=== PATIENT | female | born 1955 | race Hispanic/Latino ===

== ENCOUNTER → 2017-09-25 | Outpatient (CLI) | payer OTHER ==
[~2017-09-25] MED LIST: ESOM40CA54 PO; LEVO75TA10 PO; LUBI24CA2 PO; METO50TA18 PO; WARF2TAB57 PO
== END | disposition home or self-care (01) ==
LOC: RAH 14:58
PROVIDERS: ATTEND Obstetrics & Gynecology
DX: Z12.31 Encounter for screening mammogram for malignant neoplasm of breast (principal)
CPT/HCPCS: 77067

== ENCOUNTER → 2018-09-27 | Outpatient (CLI) | payer OTHER | END | disposition home or self-care (01) | LOC: RAH 15:55 | PROVIDERS: ATTEND Obstetrics & Gynecology | DX: Z12.31 Encounter for screening mammogram for malignant neoplasm of breast (principal) | CPT/HCPCS: 77067 ==

== ENCOUNTER → 2019-09-28 | Outpatient (CLI) | payer OTHER, SELFPAY | END | disposition home or self-care (01) | LOC: RAH 15:39 | PROVIDERS: ATTEND Obstetrics & Gynecology | DX: Z12.31 Encounter for screening mammogram for malignant neoplasm of breast (principal) | CPT/HCPCS: 77067 ==

== ENCOUNTER → 2020-10-17 | Outpatient (CLI) | payer MEDICARE | END | disposition home or self-care (01) | LOC: RAH 15:39 | PROVIDERS: ATTEND Obstetrics & Gynecology | DX: Z12.31 Encounter for screening mammogram for malignant neoplasm of breast (principal) | CPT/HCPCS: 77067 ==

== ENCOUNTER → 2022-11-07 | Outpatient (CLI) | payer MEDICARE | END | disposition home or self-care (01) | LOC: RAH 09:49 | PROVIDERS: ATTEND Obstetrics & Gynecology | DX: Z12.31 Encounter for screening mammogram for malignant neoplasm of breast (principal) | CPT/HCPCS: 77067 ==

== ENCOUNTER 2023-09-26 15:15 | Emergency (ER) | payer MEDICARE ==
[~2023-09-26] VITALS: Ht 152.4 cm; Wt 64.4 kg
[2023-09-26 15:52] VITALS: BP 138/77; PULSE 77; RESP 18; O2SAT 99
[2023-09-26] MEDS ORDERED: ACETAMINOPHEN WITH CODEINE 1 TAB TAB PO ONE (17:00)
[2023-09-26] MEDS ORDERED: ACET-2079 PO (17:10)
== END 2023-09-26 17:33 | disposition home or self-care (01) ==
LOC: EDH 15:15
DX: S82.142A Displaced bicondylar fracture of left tibia, initial encounter for closed fracture (principal); K21.9 Gastro-esophageal reflux disease without esophagitis; I10 Essential (primary) hypertension; Z79.01 Long term (current) use of anticoagulants; Z88.0 Allergy status to penicillin; Z91.040 Latex allergy status; W18.39XA Other fall on same level, initial encounter; Y93.89 Activity, other specified; Y92.89 Other specified places as the place of occurrence of the external cause; Y99.8 Other external cause status
CPT/HCPCS: 29505; 73562

== ENCOUNTER → 2024-02-01 | Outpatient (CLI) | payer MEDICARE ==
[~2024-02-01] MED LIST changes: +ASPI-1012 PO; +AZEL137S11 NS; +CEPH500C2 PO; +DOCU-116 PO; +ENAL-89 PO; +EPI PEN INJ; +ERYT1OIN7 OS; -ESOM40CA54 PO; +HYDR-4060 PO; +IPRA42SP NS; -LUBI24CA2 PO; -METO50TA18 PO; +MONT-39 PO; +PANT40TA54 PO; +PREG50CA64 PO; +ROPI1TAB46 PO; +ROSU5TAB43 PO; -WARF2TAB57 PO
== END | disposition home or self-care (01) ==
LOC: EEVIPCON 10:00 → RAH 10:14
PROVIDERS: ATTEND Obstetrics & Gynecology
DX: Z12.31 Encounter for screening mammogram for malignant neoplasm of breast (principal); R92.333 Mammographic heterogeneous density, bilateral breasts
CPT/HCPCS: 77067

== ENCOUNTER 2025-06-09 07:01 | Day surgery (SDC) | payer MEDICARE ==
[2025-06-07 11:53] LABS: IMMATURE GRANULOCYTE ABSOLUTE 0.02 K/uL (0-1); NUCLEATED RED BLOOD CELLS 0.0 % (0.0-0.19); PLATELET COUNT (AUTO) 323 K/uL (130-400); RED BLOOD CELL COUNT(AUTO) 4.43 MIL/uL (4.00-5.50); RED CELL DISTRIBUTION WIDTH 14.9 % (11.0-15.5); WHITE BLOOD COUNT (AUTO) 6.9 K/uL (4.8-10.8)
[2025-06-07 12:02] VITALS: BP 111/69; PULSE 79; RESP 14; TEMP 97.3
[2025-06-07 12:04] LABS: INR 0.98 (0.85-1.15)
[2025-06-07 12:05] LABS: CREATININE 0.6 mg/dL (0.5-1.0); GLOMERULAR FILTR. RATE CALC 97.0 mL/min (>90); GLUCOSE,RANDOM 87.0 mg/dL (70-105); SODIUM SERUM 135.0 mmol/L (136-145); UREA NITROGEN, BLOOD 5.0 mg/dL (7-18)
--- NOTE | 2025-06-07 12:12 | EKG ---
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
[2025-06-09] VITALS (19 sets, daily range): BP systolic 116–155; BP diastolic 56–90; PULSE 62–88; RESP 13–18; TEMP 97.2–97.6
[~2025-06-09] VITALS: Ht 152.4 cm; Wt 57.8 kg
[~2025-06-09 07:01] MED LIST changes: -ASPI-1012 PO; +ASPI-1443 PO; -CEPH500C2 PO; -DOCU-116 PO; +DUPIXENT INJ; -ENAL-89 PO; +ENAL-91 PO; -ERYT1OIN7 OS; -HYDR-4060 PO; +LINA145C PO; -ROSU5TAB43 PO; +ROSU5TAB51 PO; +SOLI10TA PO; +TIRZ5PEN SQ
[2025-06-09] MEDS ORDERED: CLINDAMYCIN IVPB 900MG/50ML 50 ML IV ONE (07:21)
[2025-06-09] MEDS ORDERED: LACTATED RINGERS 1000ML 1,000 ML IV ONE (07:21)
[2025-06-09] MEDS ORDERED: HYDR-4060 PO (08:32)
[2025-06-09] MEDS ORDERED: MIDAZOLAM HCL 1 MG/ML 2ML VIAL ONE (09:03)
[2025-06-09] MEDS ORDERED: LIDOCAINE PF 100MG/5ML (2%) SYRINGE 5ML ONE (09:03)
[2025-06-09] MEDS ORDERED: SUCCINYLCHOLINE CHLORIDE 20 MG/ML 10 ML VIAL ONE (09:25)
--- NOTE | 2025-06-09 11:25 | OP ---
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 Patient healed the fracture uneventfully and went onto develop posttraumatic left knee osteoarthritis. After discussion of the risks, benefits, and alternatives, the patient elected to proceed with a staged hardware removal to be followed by total knee arthroplasty. DESCRIPTION OF PROCEDURE: Patient was properly identified in the preoperative holding area. Surgical site marking was verified and surgery consent reviewed. The patient was then taken to the operating room and placed in supine position on the OR table. After induction of general anesthesia, preoperative antibiotics were given, all bony prominences were well-padded, and a well padded tourniquet was applied but not inflated at this time. The left lower extremity was then prepped and draped in usual sterile fashion. Surgical timeout was done verifying correct surgery, side, site, and location to be performed. The limb was exsanguinated with an Esmarch and the tourniquet was inflated to 250 mm Hg. We then used a 10 blade to reopen the anterolateral incision of the knee to its full extent. Here we came sharply down to the level of the fascia. Hemostasis was achieved with Bovie electrocautery. We then palpated the plate in incised the fascia overlying the plate with a 10 blade. We then obtained a Soto elevator and elevated the soft tissues off of the plate both proximally and distally until the plate was then covered. Interposed soft tissues debrided from the screw heads. Each of the screws was loosened with the screwdriver on hand and then removed on power. Who we are then able to remove the plate using the Soto elevator to freed up from the remaining soft tissue. Final x-rays were then obtained with AP and lateral view showing removal of the hardware. The wound was then irrigated out with normal saline. We then began repairing the fascia layer and IT band with a 1. Vicryl. 2-0 Vicryl was used in the flores bcutaneous tissue with a running subcuticular 3-0 Monocryl. Dermabond was applied over this. Sterile soft dressing was applied. Tourniquet was deflated. Patient was awakened from anesthesia and taken to the recovery room in stable condition. MEHUL HURTADO MD Jun 09, 2025 11:25
--- NOTE | 2025-06-10 11:11 | HMCIMG ---
TIBIA/FIBULA 2VWS LT REASON: OROIF LEFT TIBIA HARDWARE REMOVAL, SX TECHNIQUE: 3 views were obtained. FINDINGS: Patient underwent removal of orthopedic hardware in the left tibia.. Fluoroscopy time 2 seconds. IMPRESSION: Details of the finding in the procedural notes.
== END 2025-06-09 13:35 | disposition home or self-care (01) ==
LOC: DAH 07:01
PROVIDERS: ATTEND Student in an Organized Health Care Education/Training Program
DX: M17.32 Unilateral post-traumatic osteoarthritis, left knee (principal); I10 Essential (primary) hypertension; E78.5 Hyperlipidemia, unspecified; K21.9 Gastro-esophageal reflux disease without esophagitis; E03.9 Hypothyroidism, unspecified; Z88.0 Allergy status to penicillin; Z91.040 Latex allergy status; Z88.8 Allergy status to other drugs, medicaments and biological substances; Z90.49 Acquired absence of other specified parts of digestive tract; Z90.710 Acquired absence of both cervix and uterus; Z79.01 Long term (current) use of anticoagulants; Z98.890 Other specified postprocedural states; Z86.73 Personal history of transient ischemic attack (TIA), and cerebral infarction without residual deficits; Z79.899 Other long term (current) drug therapy
CPT/HCPCS: 80048; 85025; 85610; 85730; 36415; 93005; 64447; 64445; 20680; 73590; 94640; A4663; A4649 ×2; J7120; J3010 ×2; J1171 ×2; J1100; J0330; J2003; J2250; J2704; J2405; J3490; A6223; A5120; A4215 ×2; A4213; A4222; A4221; A4216; A4223 ×2; 76000

== ENCOUNTER → 2025-08-09 | Outpatient (CLI) | payer MEDICARE ==
[~2025-08-09] MED LIST changes: +HYDR-4060 PO; +IOHEXOL 350 MG/ML 100ML INFUS..BTL IV ONE
--- NOTE | 2025-08-14 18:34 | CARDIOLOGY ---
RAD REPORT: [facility] CT ANGIO RADIOLOGY REPORT: CORONARY CT ANGIOGRAPHY DATE: Aug 14, 2025 QUALITY: Excellent CLINICAL HISTORY AND INDICATION: [ chest pain ] TECHNIQUE: After obtaining a preliminary electrical power station technician image, contrast imaging performed on an Aquillon [id number] scanner. A dedicated, limited window, coronary imaging protocol was used, with single breath-hold, retrospective ECG gating, and automated arrhythmia rejection. 100 cc of low osmolar contrast agent: Omnipaque 350 was delivered via a 18-gauge IV catheter in the right antecubital fossa, using a power injector and followed by 60 cc of normal saline bolus as a chaser. Collimated images were reformatted at 0.5 mm intervals, and sent to an offline independent workstation for interpretation, using 3D anatomic reconstructions: Curved multiplanar reconstructions, maximum intensity projections, and multiplanar imaging. No metoprolol was administered prior to scanning due to low baseline heart rate. No SL nitroglycerin was given. CORONARY ARTERY DESCRIPTIONS: The coronary arteries arise in normal position. Left main coronary artery: Normal caliber vessel that bifurcates into the LAD and LCx. No stenosis. Left anterior descending coronary artery: Normal caliber vessel and gives rise to diagonal and septal branches. No stenosis. Left circumflex coronary artery: Normal caliber, dominant and gives rise to a large OM branch. No stenosis. Right coronary artery: Small, non-dominant vessel giving rise to the PL and PDA branches. No stenosis. CAD-RADs: 0, absence of CAD. Thoracic Aorta: Normal diameter. Linda Damon MD Cardiovascular Disease [facility] LINDA DAMON MD Aug 14, 2025 18:34
== END | disposition home or self-care (01) ==
LOC: RAH 09:12
PROVIDERS: ATTEND Internal Medicine Cardiovascular Disease
DX: R07.9 Chest pain, unspecified (principal)
CPT/HCPCS: 75574; Q9967